=== PATIENT | female | born 1975 | race Caucasian/White ===

== ENCOUNTER 2018-09-26 08:37 | Emergency (ER) | payer BC ==
--- NOTE | 2018-09-26 10:08 | ED ---
Lower Extremity - HPI Summary HPI Summary: Patient is a 43-year-old female presents to the ED with erythematous area which is approximately 2.5 cm in diameter to the mid dorsum of the foot over the third and fourth metatarsal. She states she was walking 3 days ago in the grocery store when she felt immediate pain to this area. She was wearing flip- flops at that time. She endorses worsening pain over the past 3 days with dependency, ambulation and standing. Better with rest and elevation. She endorses A/10 pain on inhalation, 0/10 pain at rest. Denies any fevers, sweats , chills. She states she was not concerned until last evening she woke up at 1: 30 in the morning feeling that her heart was racing and she was very shaky. She does endorse alcohol use the evening before. She states she feels well now , however is concerned over her high blood pressure which is typically well. She is otherwise healthy. - History of Current Complaint Chief Complaint: EDExtremityLower Stated Complaint: "POSS CELLULITIS/INFECTION IN MY FOOT" PER PT Time Seen by Provider: 09/26/18 08:40 Hx Obtained From: Patient Onset of Pain: Minutes Onset/Duration: Minutes Severity Initially: Moderate Severity Currently: Moderate Pain Intensity: 4 Pain Scale Used: 0-10 Numeric Timing: Constant Location: Is Discrete @ - left midfoot Character Of Pain: Aching Associated Signs And Symptoms: Negative: Swelling, Redness, Bruising Aggravating Factor(s): Standing, Ambulation Alleviating Factor(s): Rest Able to Bear Weight: No - Risk Factors Gout Risk Factors: Negative DVT Risk Factors: Negative Septic Arthritis Risk Factor: Negative - Allergies/Home Medications Allergies/Adverse Reactions: Allergies Allergy/AdvReac Type Severity Reaction Status Date / Time ciprofloxacin Allergy Rash Verified 09/26/18 08:45 codeine Allergy Rash Verified 09/26/18 08:45 pseudoephedrine Allergy Anaphylatic [facility]18 [facility] Home Medications: Home Medications raNITIdine HCl [Zantac 150 Maximum Streng] 150 mg PO BID 09/26/18 [History Confirmed 09/26/18] PMH/Surg Hx/FS Hx/Imm Hx Previously Healthy: Yes Endocrine/Hematology History: Denies: Hx Diabetes Cardiovascular History: Denies: Hx Hypertension, Hx Pacemaker/ICD Respiratory History: Denies: Hx Asthma Sensory History: Denies: Hx Hearing Aid Psychiatric History: Denies: Hx Panic Disorder - Surgical History Surgery Procedure, Year, and Place: 1993 facial trama=plastic surgury done mainly lt side oribit,jaw,sinuses. 2 C-SECTIONS - Immunization History Hx Pertussis Vaccination: No Immunizations Up to Date: Yes Infectious Disease History: No Infectious Disease History: Denies: Traveled Outside the [place] in Last 30 Days - Social History Occupation: Employed Full-time Lives: With Family Alcohol Use: Weekly Hx Substance Use: No Substance Use Type: Reports: None Smoking Status (MU): Never Smoked Tobacco Review of Systems Constitutional: Negative Negative: Fever, Chills, Fatigue, Skin Diaphoresis Negative: Palpitations, Chest Pain Negative: Shortness Of Breath, Cough Negative: Abdominal Pain, Vomiting, Diarrhea Positive: Myalgia - left dorsal foot pain. Negative: Arthralgia Positive: Other - erythematous area measuring 2cm in diameter Neurological: Negative All Other Systems Reviewed And Are Negative: Yes Physical Exam Triage Information Reviewed: Yes Vital Signs On Initial Exam: Initial Vitals Temp Pulse Resp BP Pulse Ox 98.2 F 114 17 166/88 100 09/26/18 08:40 09/26/18 08:40 09/26/18 08:40 09/26/18 08:40 09/26/18 08:40 Vital Signs Reviewed: Yes Appearance: Positive: Well-Appearing, Well-Nourished Skin: Positive: Warm, Skin Color Reflects Adequate Perfusion Head/Face: Positive: Normal Head/Face Inspection Eyes: Positive: EOMI, Conjunctiva Clear Neck: Positive: No Lymphadenopathy Respiratory/Lung Sounds: Positive: Clear to Auscultation Cardiovascular: Positive: RRR, Pulses are Symmetrical in both Upper and Lower Extremities Musculoskeletal: Positive: Pain @ - right dorsum foot pain Neurological: Positive: Speech Normal Diagnostics - Vital Signs Vital Signs Temp Pulse Resp BP Pulse Ox 09/26/18 09:10 106 139/93 99 09/26/18 08:40 98.2 F 114 17 166/88 100 - Laboratory Lab Statement: Any lab studies that have been ordered have been reviewed, and results considered in the medical decision making process. Lower Extremity Course/Dx - Course Course Of Treatment: On physical examination, there is a 2.5 cm in diameter erythematous area over the dorsum of the midfoot over the third and fourth metatarsal. No evidence of a cellulitis, no swelling, no streaking up the leg. Patient has no pain on palpation to other parts of the foot, toes Or ankle. She denies any pain to the ankle or the lower extremity or knee. No history of trauma or diabetes. This appears to be a stress fracture. X-ray obtained which shows no acute findings but a possible osteomyelitis if concerned would be a late finding. Discussed this with patient. At this point I am not concerned for an osteomyelitis. She is offered a postop shoe, but declines. She is offered crutches but declines. She'll follow-up with orthopedics for any worsening or changing symptoms. She will ice and elevate. - Diagnoses Differential Diagnosis/HQI/PQRI: Positive: Other - cellulitis, osteomyelitis, contusion, inflammation, tendinitis Provider Diagnoses: Stress fracture Discharge - Sign-Out/Discharge Documenting (check all that apply): Patient Departure Patient Received Moderate/Deep Sedation with Procedure: No - Discharge Plan Condition: Stable Disposition: HOME Referrals: Marko Lopez MD [Medical Doctor] - Manuel Hendrix MD [Primary Care Provider] - Additional Instructions: As discussed, this appears to be a stress fracture However, there is the possibility that this is a will or a bone infection however I am not seeing evidence of this on physical exam. Please call ortho tomorrow to make an appt If you develop worsening symptoms including fevers, sweats, chills, worsening redness, swelling, streaking up the leg, return to the ED immediately - Billing Disposition and Condition Condition: STABLE Disposition: Home
[2018-09-26 10:35] VITALS: BP 142/96
== END 2018-09-26 10:34 | disposition home or self-care (01) ==
LOC: ED 08:37
DX: M84.375A Stress fracture, left foot, initial encounter for fracture (principal); X58.XXXA Exposure to other specified factors, initial encounter; Y92.9 Unspecified place or not applicable
CPT/HCPCS: 99282